=== PATIENT | female | born 1995 | race African-American/Black ===

== ENCOUNTER 2021-08-22 10:06 | Day surgery (SDC) | payer SELFPAY ==
[2021-08-21 14:33] VITALS: BMI 24.7
[2021-08-22] MEDS ORDERED: EPINEPHrine/PF 1 MG/1 ML (1:1,000) AMPULE ONE (11:32)
[2021-08-22] MEDS ORDERED: BACITRACIN 15 GM TUBE TOPICAL OINTMENT ONE (11:33)
[2021-08-22] MEDS ORDERED: GUM MASTIC/STORAX/MSAL/ALCOHOL 1 DRP DROPSBTL MC ONE (11:33)
[2021-08-22] MEDS ORDERED: LIDOCAINE HCL 1%, 10 MG/ML (20ML VIAL) ONE (11:33)
[2021-08-22] MEDS ORDERED: PROPOFOL 20 ML ONE (11:46)
[2021-08-22] MEDS ORDERED: KETOROLAC TROMETHAMINE 30 MG/1 ML VIAL ONE (11:50)
[2021-08-22] MEDS ORDERED: ONDANSETRON 4 MG/2 ML VIAL ONE (11:50)
[2021-08-22] MEDS ORDERED: ceFAZolin SODIUM 1 GM VIAL ONE ×2 (11:50)
[2021-08-22] MEDS ORDERED: DEXAMETHASONE SOD PHOSPHATE 4 MG/1 ML VIAL ONE (11:50)
[2021-08-22] MEDS ORDERED: MIDAZOLAM HCL 2 MG/2 ML SINGLE DOSE VIAL ONE (11:52)
[2021-08-22] MEDS ORDERED: SUCCINYLCHOLINE CHLORIDE 200 MG/10 ML SYRINGE ONE (12:11)
[2021-08-22] MEDS ORDERED: ROCURONIUM BROMIDE 50 MG/5 ML SYRINGE ONE (12:31)
[2021-08-22] MEDS ORDERED: NEOSTIGMINE METHYLSULFATE 0.5 MG/1 ML - 10 ML MDV ONE (14:45)
[2021-08-22] MEDS ORDERED: BACITRACIN 15 GM TUBE TOPICAL OINTMENT TP ONE (14:45)
[2021-08-22] MEDS ORDERED: GLYCOPYRROLATE 0.2 MG/1 ML VIAL ONE ×3 (14:46→14:48)
[2021-08-22] MEDS ORDERED: ONDANSETRON 4 MG/2 ML VIAL IVPUSH PRN (15:02)
[2021-08-22] MEDS ORDERED: oxyCODONE HCL 5 MG TABLET PO PRN (15:02)
[2021-08-22] MEDS ORDERED: PROMETHAZINE HCL 25 MG/1 ML VIAL IVPUSH PRN (15:02)
[2021-08-22] MEDS ORDERED: FENTANYL CITRATE/PF 50 MCG/ML VIAL ONE ×2 (15:21→15:39)
[2021-08-22] MEDS ORDERED: oxyCODONE HCL 5 MG TABLET PO ONE (16:35)
[2021-08-22] MEDS ORDERED: oxyCODONE HCL 5 MG TABLET ONE (16:35)
[2021-08-22 17:26] VITALS: BP 109/64; PULSE 59; TEMP 98.1
== END 2021-08-22 17:15 | disposition home or self-care (01) ==
LOC: FASU 10:06
PROVIDERS: ATTEND Surgery
PROC: 0J083ZZ Alteration of Abdomen Subcutaneous Tissue and Fascia, Percutaneous Approach (ICD-10-PCS; principal; 2021-08-22 12:39)
DX: E65 Localized adiposity (principal)
CPT/HCPCS: 84703; 94760

== ENCOUNTER 2021-08-22 22:58 | Emergency (ER) | payer SELFPAY ==
[2021-08-22 23:07] VITALS: TEMP 98.8; BMI 24.7
[2021-08-23 00:34] LABS: HEMATOCRIT 33.2 % (32.4-45.2); HEMOGLOBIN 11.4 GM/dL (10.7-15.3); MCHC 34.3 g/dl (32.0-36.0); MEAN CELL VOLUME 87.6 fl (80-96); MEAN PLT VOLUME 8.4 fl (7.5-11.1); PLATELET COUNT 332 10^3/uL (134-434); RBC 3.79 M/mm3 (3.60-5.2); RDW 12.7 % (11.6-15.6); WHITE BLOOD COUNT 10.7 K/mm3 (4.0-10.0)
[2021-08-23 01:03] LABS: ALBUMIN 3.3 g/dl (3.4-5.0); BILIRUBIN,TOTAL 0.3 mg/dL (0.2-1); BLOOD UREA NITROGEN 5.3 mg/dL (7-18); CALCIUM 8.9 mg/dL (8.5-10.1); CREATININE 0.6 mg/dL (0.55-1.3); TOT PROT 6.5 g/dl (6.4-8.2)
[2021-08-23] MEDS ORDERED: SODIUM CHLORIDE 1,000 ML IV STA (02:25)
[2021-08-23 03:50] VITALS: BP 87/55; PULSE 60
== END 2021-08-23 03:58 | disposition home or self-care (01) ==
LOC: FER 22:58
PROC: 3E0337Z Introduction of Electrolytic and Water Balance Substance into Peripheral Vein, Percutaneous Approach (ICD-10-PCS; principal; 2021-08-22)
DX: R06.02 Shortness of breath (principal)
CPT/HCPCS: 36415; 71045-TC-FY; 71275-TC; 80053; 85027; 85379; 99285-25; Q9967